=== PATIENT | male | born 1960 | race Caucasian/White ===

== ENCOUNTER 2018-11-15 15:54 | Emergency (ER) | payer MEDICAID ==
[~2018-11-15] VITALS: Ht 167.6 cm; Wt 75.0 kg
[2018-11-15 17:24] LABS: BASOPHILS % 0.4 % (0.0-2.0); CHLORIDE 96 mEq/L (98-107); EOSINOPHILS % 0.3 % (0.0-5.0); HEMATOCRIT. 43.5 % (42.0-52.0); HEMOGLOBIN. 14.4 g/dL (14.0-18.0); LYMPHOCYTES % 25.8 % (20.0-50.0); MEAN CORPUSCULAR HEMOGLOBIN 27.6 pg (28.0-32.0); MEAN CORPUSCULAR VOLUME 83.6 fL (80.0-94.0); MEAN PLATELET VOLUME 8.7 fl (7.4-10.4); MONOCYTES % 8.7 % (2.0-8.0); NEUTROPHILS % 64.8 % (40.0-76.0); PLATELET 228 x1000/uL (130-400); RED BLOOD CELL COUNT 5.21 mill/uL (4.7-6.1); RED CELL DISTRIBUTION WIDTH 14.3 % (11.6-14.6)
[2018-11-15] MEDS ORDERED: SODIUM CHLORIDE 0.9% 1,000 ML IV ONE (19:00)
[2018-11-15] MEDS ORDERED: INSULIN REGULAR (HUMULIN R) UD 100 UNITS/ML SYR SUBCUT ONE (19:00)
[2018-11-15] MEDS ORDERED: INSULIN REGULAR (HUMULIN R) 300UNITS/3ML SUBCUT NR (20:00)
[2018-11-15 21:09] VITALS: BP 114/80
== END 2018-11-15 21:12 | disposition home or self-care (01) ==
LOC: ER 15:54
DX: E11.65 Type 2 diabetes mellitus with hyperglycemia (principal); E86.0 Dehydration; I10 Essential (primary) hypertension
CPT/HCPCS: 36415; 70450; 71045; 80053; 82962; 84484; 85025; 93005; 96360; 96361; 96372; 99284; J1815; J7030